=== PATIENT | male | born 2000 | race Caucasian/White ===

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

== ENCOUNTER 2018-01-19 02:02 | Emergency (ER) | payer OTHER ==
[~2018-01-19 02:02] MED LIST: SODIUM CHLORIDE 0.9% 1,000 ML BAG ONE
[2018-01-19] MEDS ORDERED: ACETAMINOPHEN IV (For NPO) 1,000 MG/100 ML VIAL ONE (02:30)
[2018-01-19] MEDS ORDERED: MORPHINE SULFATE 4MG/4ML SYRG ONE ×2 (03:00)
[2018-01-19] MEDS ORDERED: ONDANSETRON 4 MG/2 ML VIAL ONE (03:00)
[2018-01-19 06:35] LABS: Basophils % (A) 0 %; Eosinophils # (A) 0.2 k/uL (0-0.7); Eosinophils % (A) 2 %; HCT 38.1 % (39.0-53.0); Lymphocytes # (A) 3.1 k/uL (1.0-4.8); Lymphocytes % (A) 28 %; MCH 27.6 pg (25.0-35.0); MCHC 34.1 g/dL (31.0-37.0); MCV 80.9 fL (80.0-100.0); Mean Platelet Volume 6.5; Monocytes # (A) 0.4 k/uL (0-1.0); Monocytes % (A) 4 %; Neutrophils # (A) 7.2 k/uL (1.3-7.7); Neutrophils % (A) 65 %; Platelet Count 304 k/uL (150-450); RBC 4.71 m/uL (4.30-5.90); RDW 13.5 % (11.5-15.5); WBC 11.1 k/uL (4.0-11.0)
[2018-01-19 06:41] LABS: ALT 79 U/L (21-72); AST 34 U/L (17-59); Albumin 4.3 g/dL (3.5-5.0); Alkaline Phosphatase 74 U/L (38-126); Amylase 69 U/L (30-110); Anion Gap 17 mmol/L; Blood Urea Nitrogen 13 mg/dL (9-20); Carbon Dioxide 23 mmol/L (22-30); Chloride 106 mmol/L (98-107); Glucose 111 mg/dL (74-99); Lipase 92 U/L (23-300); Potassium 3.9 mmol/L (3.5-5.1); Sodium 146 mmol/L (137-145); Total Bilirubin 0.2 mg/dL (0.2-1.3); Total Protein 6.9 g/dL (6.3-8.2)
--- NOTE | 2018-01-19 13:22 | CT ---
EXAMINATION TYPE: CT abdomen pelvis w con DATE OF EXAM: 01/19/2018 COMPARISON: 08/17/2014 HISTORY: Right lower quadrant pain CT DLP: mGycm Automated exposure control for dose reduction was used. TECHNIQUE: Helical acquisition of images was performed from the lung bases through the pelvis. CONTRAST: The contrast was Isovue 100 mL. FINDINGS: Lung bases are clear. There is no pleural effusion. There is low-attenuation in the liver consistent with fatty infiltration. Gallbladder and pancreas and spleen appear normal. There is no adrenal mass. There is mild right-sided hydronephrosis. There is a 2 mm calcification in the proximal right ureter. There is a 2 mm calcification in the anterior right kidney. There is no retroperitoneal adenopathy. Left kidney appears normal. Delayed images show persistent right-sided nephrogram consistent with acu te obstruction. I see no intestinal wall thickening. There are no dilated loops. Appendix appears normal. There is no ascites. Bladder distends smoothly. There is no sign of free air. Bony structures are intact. IMPRESSION: FATTY INFILTRATION OF THE LIVER. SMALL OBSTRUCTING CALCULUS IN THE PROXIMAL RIGHT URETER IS NEW SNOW RED TO OLD EXAM. NORMAL APPENDIX.
== END 2018-01-19 03:59 | disposition home or self-care (01) ==
LOC: EC 02:02
DX: N20.2 Calculus of kidney with calculus of ureter (principal)
CPT/HCPCS: 99284; 96374; 96375; 96376; 96361; 36415; 80053; 82150; 83690; 85025; 74177; J2405; J0131; Q9967; J2270

== ENCOUNTER → 2023-03-29 | Outpatient (CLI) | payer OTHER ==
--- NOTE | 2023-03-29 14:04 | US ---
EXAMINATION TYPE: US scrotum with doppler. Grayscale and color Doppler Duplex imaging performed of sonal mueller scrotum. DATE OF EXAM: 03/29/2023 COMPARISON: NONE CLINICAL INDICATION: Male, 22 years old with history of N50.82 SCROTUM PAIN; pain left testicle for 1 month EXAM MEASUREMENTS: TESTICLES: Right Testicle: 4.3 x 2.2 x 3.2 cm Left Testicle: 4.3 x 2.4 x 3.2 cm EPIDIDYMIS HEAD: Right Epididymis: 1.7 cm Left Epididymis: 1.0 cm Doppler performed to assess for testicular vascularity; good bilateral color flow and waveforms are s een. There is no evidence of testicular torsion. Presence of hydroceles: no Presence of varicoceles: prominent vascularity lateral to left testicle *Cystic areas right epididymis, largest = 0.7cm. This is consistent with simple epididymal cyst. IMPRESSION: 1. No evidence of testicular torsion or mass. 2. Left varicocele.
== END | disposition home or self-care (01) ==
LOC: RADUSWWP 13:28 → MERGE 13:40
PROVIDERS: ATTEND Family Medicine
DX: I86.1 Scrotal varices (principal)
CPT/HCPCS: 76870; 93975

== ENCOUNTER → 2023-12-01 | Outpatient (CLI) | payer OTHER ==
--- NOTE | 2023-12-01 12:00 | CT ---
EXAMINATION TYPE: CT ankle LT wo con DATE OF EXAM: 12/01/2023 COMPARISON: Radiograph 08/15/2015 HISTORY: 23-year-old male S92.022A DISP FX OF ANTERIOR PROCESS OF LEFT CALCANEUS, ankle fx TECHNIQUE: Contiguous axial scanning of the left ankle without IV contrast. Coronal and sagittal xena nstructions performed. 3-D reconstructions generated on a dedicated independent workstation. CT DLP: 300 mGycm Automated exposure control for dose reduction was used. FINDINGS: There is a 1.7 x 0.4 cm corticated bone fragment at the anterior process of the calcaneus suggesting chronic ununited fracture fragment. Some additional punctate ossific densities measuring up to 4 mm a re present just adjacent along the dorsal lateral aspect of the anterior process. Os peroneum noted. No acute fracture. Tibiotalar and subtalar joints appear intact. Some mild ossific densities along the dorsum of the talar head may reflect sequela of old capsular av ulsion injury. No significant soft tissue abnormality is seen. IMPRESSION: 1. A 1.7 X 0.4 CM CORTICATED BONE FRAGMENT AT THE ANTERIOR PROCESS OF THE CALCANEUS SUGGESTING A RADIOLOGY DIRECTOR TYREE UNUNITED FRACTURE FRAGMENT. SOME ADDITIONAL PUNCTATE OSSIFIC DENSITIES/LOOSE BODIES MEASURING UP TO 4 MM ARE PRESENT JUST ADJACENT ALONG THE DORSOLATERAL ASPECT OF THE ANTERIOR PROCESS. 2. POSSIBLE SEQUELA OF REMOTE CAPSULAR AVULSION FRACTURE FROM THE DORSAL TALAR HEAD.
== END | disposition home or self-care (01) ==
LOC: RADCTMAIN 10:15
PROVIDERS: ATTEND Podiatrist Foot & Ankle Surgery
DX: S92.022A Displaced fracture of anterior process of left calcaneus, initial encounter for closed fracture (principal); X58.XXXA Exposure to other specified factors, initial encounter

== ENCOUNTER → 2024-05-01 | Outpatient (CLI) | payer OTHER ==
--- NOTE | 2024-05-01 16:34 | XR ---
EXAMINATION TYPE: XR foot complete LT, XR ankle complete LT DATE OF EXAM: 05/01/2024 4:14 PM CLINICAL INDICATION:Male, 23 years old with history of M84.40XA FRACTURE, UNSP SITE, INIT ENCNTR FOR [facility]; [facility] COMPARISON: None TECHNIQUE: XR foot complete LT, XR ankle complete LT examined in the AP, oblique, and lateral project ions. FINDINGS: No evidence of any acute osseous pathology. No calcaneus appears without fracture line. No prior imag ing available for comparison. IMPRESSION: No evidence of acute fracture.
== END | disposition home or self-care (01) ==
LOC: RADXRMAIN 15:53
PROVIDERS: ATTEND Family Medicine
DX: M84.40XA Pathological fracture, unspecified site, initial encounter for fracture (principal)

== ENCOUNTER 2025-01-22 10:56 | Day surgery (SDC) | payer OTHER ==
[~2025-01-22 10:56] MED LIST changes: +LIDOCAINE 1% (10MG/ML) FOR IV START INTRADERMA PRN; +MIDAZOLAM 2 MG/2 ML VIAL IV PRN; -SODIUM CHLORIDE 0.9% 1,000 ML BAG ONE; +fentaNYL (PF) 50 MCG/ML 2 ML AMP IVP PRN
[2025-01-22] MEDS: IV FLUID CONTINUATION 1,000 ML IV ONE ×2 (11:38→15:45)
[2025-01-22] MEDS: LACTATED RINGERS 1,000 ML IV SCH (11:38)
[2025-01-22] MEDS: ONDANSETRON 4 MG/2 ML VIAL IVP ONE (11:58)
[2025-01-22] MEDS: DEXAMETHASONE SOD PHOSPHATE 4 MG/ML 1 ML VIAL IV ONE (11:58)
[2025-01-22] MEDS: HEPARIN SODIUM,PORCINE 5,000 UNIT/ML 1 ML VIAL SQ PRN (12:08)
[2025-01-22] MEDS ORDERED: LIDOCAINE 1% INJ 10MG/ML (20 ML MDV) ONE (13:09)
[2025-01-22] MEDS ORDERED: SUCCINYLCHOLINE CHLORIDE 200 MG/10 ML VIAL IV ONE (13:09)
[2025-01-22] MEDS ORDERED: HYDROmorphone (PF) 1 MG/ML ONE (13:09)
[2025-01-22] MEDS ORDERED: GLYCOPYRROLATE 0.2 MG/ML 2 ML VIAL ONE (13:09)
[2025-01-22] MEDS ORDERED: PROPOFOL 10 MG/ML 20 ML VIAL IV ONE (13:09)
[2025-01-22] MEDS ORDERED: fentaNYL (PF) 50 MCG/ML 2 ML AMP ONE (13:09)
[2025-01-22] MEDS ORDERED: MIDAZOLAM 2 MG/2 ML VIAL ONE (13:09)
[2025-01-22] MEDS ORDERED: ROCURONIUM 10 MG/ML (5 ML VIAL) IV ONE (13:09)
[2025-01-22] MEDS ORDERED: NEOSTIGMINE 1 MG/ML 10 ML VIAL ONE (13:09)
[2025-01-22] MEDS: ceFAZolin 2 GM in DEXTROSE 5% IN WATER 50 ML IVPB PRN (13:14)
[2025-01-22] MEDS: LIDOCAINE 1%-EPI 1:100,000 20 ML VIAL SQ ONE (13:47)
--- NOTE | 2025-01-22 14:10 | P.OP ---
Date of Procedure: 01/22/25 Preoperative Diagnosis: Right inguinal hernia Postoperative Diagnosis: Right inguinal indirect hernia Procedure(s) Performed: Robotic right inguinal hernia repair with mesh placement Implants: ProGrip right inguinal mesh Anesthesia: COBY Surgeon: Del Jack Pathology: none sent Condition: stable Disposition: same day Indications for Procedure: 24-year-old male presented to the surgery clinic with complaint of right groin pain. On exam he is found to have a right inguinal hernia. Risks, benefits and alternatives were provided for robotic right inguinal hernia repair. He has provided consent prior to attending the operating suite. Operative Findings: Right inguinal indirect hernia Description of Procedure: The patient was brought back to the operating suite and placed in supine position on the operating table. Sedation provided by anesthesia and the patient underwent endotracheal intubation. A supraumbilical incision was made approximately 20 cm superior to the pubic symphysis. Dissection was carried to the fascia and the fascia was incised. 8 mm trocar was placed and pneumoperitoneum was achieved. 2 additional incisions were made approximately 11 cm lateral to the supraumbilical incision and 8 mm trocars were placed. The patient was then placed in Trendelenburg position and the hernia site was clearly visualized on the right side. This was noted to be an indirect inguinal hernia. The robot was then docked appropriately. Incision was then made just lateral to the medial umbilical ligament on the right side with monopolar scissors and the peritoneal flap was created and was taken down towards Yonis's ligament. The flap was then extended laterally. Attention was then turned towards the indirect inguinal hernia. The sac was freed from the cord all while preserving the cord structures. At this point, the indirect inguinal hernia was reduced. Once the entire space was appropriately dissected out, we brought the ProGrip mesh and unrolled it over the hernia site. Once appropriately in place without any kinks or folds, the peritoneal flap was closed using a running 2 OV lock suture. Once this was completed we removed the robotic instruments and undocked the robot. The supraumbilical fascial incision site was closed with 0 Vicryl suture under direct visualization using a ALOSKO device. This was done under laparoscopic guidance. All skin incisions were closed with 4-0 Vicryl subcuticular suture. Sterile dressing was applied. The patient was awakened in the operating suite and taken to postanesthesia care in stable condition.
[2025-01-22 14:19] VITALS: TEMP 97.5
[2025-01-22] MEDS: HYDROmorphone 0.5 MG/0.5 ML SYRINGE IVP PRN (14:36)
[2025-01-22 15:16] VITALS: RESP 18
[2025-01-22] MEDS: HYDROcodone/APAP 5-325MG 1 EACH TAB PO STA (15:36)
[2025-01-22 16:15] VITALS: BP 124/67; PULSE 61
== END 2025-01-22 16:22 | disposition home or self-care (01) ==
LOC: OR 10:56
PROVIDERS: ATTEND Surgery
DX: K40.90 Unilateral inguinal hernia, without obstruction or gangrene, not specified as recurrent (principal); Z87.891 Personal history of nicotine dependence
CPT/HCPCS: 49650; S2900